=== PATIENT | male | born 1935 | race Caucasian/White ===

== ENCOUNTER 2020-07-16 11:30 | Observation (INO) | payer MEDICARE ==
[~2020-07-16] VITALS: Ht 180.3 cm; Wt 83.1 kg
--- NOTE | 2020-07-16 11:42 | NUR ---
PT IS AN 85M [facility] COMPLAINING OF AN EPISODE OF 10/10 PAIN AT HIS CLINIC APPOINTMENT IN THE LOBBY THAT HAS SINCE SUBSIDED. THIS HAPPENED TO HIM ONCE 30 YEARS AGO AFTER EATING CORN BUT NOTHING SINCE. CARDIAC, BP, AND SPO2 MONITOR IN PLACE. PROVIDER AT BEDSIDE FOR EVAL. CALL LIGHT WITHIN REACH.
[2020-07-16] MEDS ORDERED: LOSA50TA14 PO (11:45)
[2020-07-16] MEDS ORDERED: ATOR-2 PO (11:46)
[2020-07-16] MEDS ORDERED: TAMS-11 PO (11:46)
[2020-07-16] MEDS ORDERED: ONDANSETRON 2MG/ML, 2ML ONE (11:52)
[2020-07-16] MEDS ORDERED: MORPHINE SULFATE 4 MG/ML, 1ML ONE (11:52)
[2020-07-16] MEDS ORDERED: SODIUM CHLORIDE FLUSH 10ML SYR IVF ONE (12:00)
[2020-07-16] MEDS ORDERED: ONDANSETRON 2MG/ML, 2ML IVPush ONE (12:00)
[2020-07-16] MEDS ORDERED: SODIUM CHLORIDE 0.9% 1,000 ML IV ONE (12:00)
[2020-07-16] MEDS ORDERED: morphine SULFATE 10 MG/ML, 1ML IVPush ONE (12:00)
[2020-07-16 12:18] LABS: BASOPHILS % (AUTO) 1 % (0-1); EOSINOPHILS % (AUTO) 2 % (1-7); LYMPHOCYTES % (AUTO) 22 % (22-44); MD NO; MEAN CORPUSCULAR HEMOGLOBIN 32.4 pg (27.5-34.5); MEAN CORPUSCULAR HGB CONC 34.4 g/dL (33.2-36.2); MEAN PLATELET VOLUME 7.5 fL (7.4-10.4); MONOCYTES % (AUTO) 6 % (2-9); NEUTROPHILS % (AUTO) 70 % (42-75); PLATELET COUNT 180 x10^3/uL (130-400)
[2020-07-16] MEDS ORDERED: SODIUM CHLORIDE 0.9% 1,000ML IVBOLUS ONE (12:30)
[2020-07-16] MEDS ORDERED: LABETALOL 5MG/ML, 20ML IVPush ONE (12:30)
--- NOTE | 2020-07-16 12:32 | NUR ---
PER ULTRASOUND POSSIBLE AAA, CALLED CT TO EXPEDITE, WILL MOVE TO T3
[2020-07-16 12:33] LABS: ALBUMIN 3.5 g/dL (3.4-5.0); ANION GAP 4 mmol/L (5-15); CALCIUM 8.7 mg/dL (8.5-10.1); CHLORIDE 108 mmol/L (98-107)
[2020-07-16 12:38] LABS: ALANINE AMINOTRANSFERASE 30 U/L (12-78); ALKALINE PHOSPHATASE 106 U/L (45-117); BILIRUBIN,TOTAL 0.8 mg/dL (0.2-1.0); CREATININE 1.16 mg/dL (0.7-1.3); TOTAL PROTEIN 7.1 g/dL (6.4-8.2); TROPONIN I < 0.015 ng/mL (0.000-0.045)
--- NOTE | 2020-07-16 12:43 | NUR ---
RECEIVED REPORT FROM DARNELL MESA. PT MOVED TO T3 W/ ALL PERSONAL BELONGINGS. MONITORS APPLIED. PT RESTING ON RNEY. DEL ROSARIO.
[2020-07-16] MEDS ORDERED: OMNIPAQUE 350 MG/ML, 100ML BOTTLE ONE (12:56)
--- NOTE | 2020-07-16 13:03 | NUR ---
ERP DR. BECKWITH MADE AWARE OF PT CO ABD PAIN INCREASING AGAIN AND PT STARTED ON NICARDIPINE GTT AT 2.5 MG/HR W BP 153/78. PER ERP GOAL SBP TO BE 140. AWAITING NEW ORDERS.
--- NOTE | 2020-07-16 13:09 | NUR ---
PT RESTING ON GURCRYSTAL. NADN. BP STABILIZING AT 136/71 AT THIS TIME.
[2020-07-16] MEDS ORDERED: HYDROmorphone 1 MG/ML, 1ML INJ ONE (13:13)
--- NOTE | 2020-07-16 13:18 | NUR ---
ERP DR. BECKWITH SPOKE W/ RADIOLOGIST. NO NEED TO CONTINUE NICARDIPINE GTT FOR PT. VERBAL READ BACK. NICARDIPINE GTT STOPPED PER ERP DR. BECKWITH ORDER.
[2020-07-16] MEDS ORDERED: HYDROmorphone 1 MG/ML, 1ML INJ IV ONE (13:30)
--- NOTE | 2020-07-16 13:31 | NUR ---
REPORT GIVEN TO DARNELL MESA. PT MOVED TO RM 17 W/ ALL PERSONAL BELONGINGS.
--- NOTE | 2020-07-16 13:35 | NUR ---
DAUGHTER AT BEDSIDE, UPDATED VITALS, CARDIAC, BP, AND SP02 MONITORS IN PLACE. CALL LIGHT WITHIN REACH.
--- NOTE | 2020-07-16 14:09 | NUR ---
REPORT TO SILAS PATRICK. PT WILL GO TO 505
[2020-07-16 14:32] VITALS: BP 141/77
[2020-07-16] MEDS ORDERED: METOCLOPRAMIDE 5 MG/ML, 2ML IVPush PRN (16:00)
[2020-07-16] MEDS ORDERED: ONDANSETRON 2MG/ML, 2ML IVPush PRN (16:00)
[2020-07-16] MEDS ORDERED: ONDANSETRON ODT 4 MG PO PRN (16:00)
[2020-07-16] MEDS ORDERED: MELATONIN 5 MG TABLET PO PRN (16:00)
[2020-07-16] MEDS ORDERED: morphine SULFATE 10 MG/ML, 1ML IVPush PRN (16:00)
[2020-07-16] MEDS ORDERED: ENALAPRILAT 1.25 MG/ML, 2ML IVPush PRN (16:00)
[2020-07-16] MEDS: OMEPRAZOLE 20 MG CAPSULE.DR PO SCH (18:14)
[2020-07-16 18:53] VITALS: BP 124/68
[2020-07-16 18:59] LABS: TROPONIN I < 0.015 ng/mL (0.000-0.045)
[2020-07-16] MEDS ORDERED: LOSARTAN 25MG TABLET PO SCH (21:00)
[2020-07-16] MEDS ORDERED: ATORVASTATIN 80 MG TABLET PO SCH (21:00)
[2020-07-17 00:03] VITALS: BP 108/55
[2020-07-17] MEDS: ACETAMINOPHEN 325 MG TABLET PO PRN ×2 (01:38→05:38)
[2020-07-17] MEDS: OMEPRAZOLE 20 MG CAPSULE.DR PO SCH (05:28)
[2020-07-17 07:50] VITALS: BP 149/82
[2020-07-17] MEDS ORDERED: OMEP-110 PO (08:34)
[2020-07-17] MEDS ORDERED: TAMSULOSIN 0.4 MG CAP.ER.24H PO SCH (09:00)
== END 2020-07-17 11:40 | disposition home or self-care (01) ==
LOC: ED 13:21 → 5SO 13:40 → INTOOBSV 13:40 → DCLOUNGE 07-17 11:33
PROVIDERS: ADMIT Family Medicine; ATTEND Hospitalist
DX: R10.13 Epigastric pain (principal); K22.4 Dyskinesia of esophagus; K21.9 Gastro-esophageal reflux disease without esophagitis; I10 Essential (primary) hypertension; E78.5 Hyperlipidemia, unspecified; J84.9 Interstitial pulmonary disease, unspecified; N40.0 Benign prostatic hyperplasia without lower urinary tract symptoms; I70.0 Atherosclerosis of aorta; I71.4 Abdominal aortic aneurysm, without rupture; J61 Pneumoconiosis due to asbestos and other mineral fibers; J67.9 Hypersensitivity pneumonitis due to unspecified organic dust; Z79.899 Other long term (current) drug therapy
CPT/HCPCS: 36415; 71045; 71275; 74174; 76700; 80053; 83690; 84484; 85025; 86850; 86900; 93005; 96361; 96365; 96375; 99285; G0378; J1170; J2270; J2405; J7030; J7050; Q9967